=== PATIENT | male | born 1950 | race Caucasian/White ===

== ENCOUNTER → 2018-05-03 08:08 | Day surgery (SDC) | payer MEDICARE, BC ==
[~2018-05-03 08:08] MED LIST: Acetaminophen TAB* 325 MG PO PRN; Diazepam TAB(*) 5 MG ONE; Heparin 2 UNITS/ML IVPREMIX* 2,000 ML IV ONE; Heparin(*) 1000 UNIT/ML 10 ML VIAL CATH LAB IV ONE; Iohexol 350 (CONTRAST) 200 ML MDV IV ONE; Lidocaine 1% INJ* 10 MG/ML 30 ML SDV ONE; Midazolam* 1 MG/ML 10 ML VIAL (10 MG) ONE; NS 0.9% 1000 ML* 1,000 ML IV SCH; VERAPAMIL 2.5 MG/ML 2 ML VIAL ** 5 mg/2 ml ONE; fentaNYL* 50 MCG/ML 2 ML VIAL (100 MCG VIAL) ONE; nitroGLYCERIN DRIP* 25,000 MCG/250 ML BTL ONE
[2018-05-03 08:47] LABS: ABS Basophils 0 10^3/ul (0-0.2); ABS Eosinophils 0.1 10^3/ul (0-0.6); ABS Lymphocytes 2.5 10^3/ul (1.0-4.8); ABS Monocytes 0.9 10^3/ul (0-0.8); ABS Neutrophils 3.9 10^3/ul (1.5-7.7); ABS Nucleated RBC 0 10^3/ul; Eosinophil % 1.6 % (0-6); Hematocrit 45 % (42-52); Hemoglobin 15.9 g/dl (14.0-18.0); Lymphocyte % 33.7 % (25-47); Mean Corpuscular HGB Conc 35 g/dl (31-36); Mean Corpuscular Hemoglobin 32 pg (27-31); Mean Corpuscular Volume 92 fL (80-94); Mean Platelet Volume 7.5 um3 (7.4-10.4); Nucleated Red Blood Cells % 0.2; Platelet Count 229 10^3/ul (150-450); Red Blood Count 4.91 10^6/ul (4.00-5.40); Red Cell Distribution Width 13 % (10.5-15); White Blood Count 7.5 10^3/ul (3.5-10.8)
[2018-05-03 09:03] LABS: EGFR Non-African American 90.9 (>60); INR 0.9 (0.77-1.02)
[2018-05-03 12:36] VITALS: BP 144/89
--- NOTE | 2018-05-04 10:04 | CATH ---
CC: Noel Franco MD; Navjot Klein MD, Cardiothoracic Surgery, [place], [place].* CARDIAC CATHETERIZATION: DATE OF PROCEDURE: 05/03/18 - [facility] CATH PROCEDURE: Cardiac catheterization including coronary angiography and left heart catheterization. INDICATION: Severe mitral regurgitation. The patient is a 67-year-old gentleman, with a history of mitral regurgitation and mitral valve prolapse. His most recent transesophageal echocardiogram showed severe mitral regurgitation with prolapse of his posterior leaflet. Cardiac catheterization was recommended prior to mitral valve repair surgery. DESCRIPTION OF PROCEDURE: The patient was brought to the procedure room in a fasting state. Informed consent had been obtained prior to the procedure. All labs were reviewed. The patient was placed supine on the procedure table. His right radial wrist area was prepped and draped in usual fashion, 1% lidocaine was used for local anesthesia. The radial artery was entered by a Seldinger technique and a guidewire was placed. Over the guidewire, a 6-Honduran hydrophilic sheath was placed. The patient underwent coronary angiography using a 6-Honduran TIG catheter and a 6-Honduran JL4 catheter. At the end of the procedure, all sheaths and catheters were removed. The patient tolerated the procedure well with no complications. A total of 45 cc of Omnipaque dye was used and a total of 4.3 minutes of fluoro time was used. FINDINGS: HEMODYNAMICS: Central aortic blood pressure 111/71 with a mean of 91. Left ventricular pressure 110/6 with an end diastolic pressure of 13. CORONARY ARTERIES: 1. Left main artery: The left main was normal in size that bifurcated into the LAD and circumflex. There was no evidence of stenosis. 2. Left anterior descending artery: The LAD was normal in size. It gave off 2 diagonal vessels. There was no evidence of stenosis. 3. Left circumflex artery: The left circumflex artery was normal in size. It gave off one large obtuse marginal branch. There was no evidence of stenosis. 4. Right coronary artery: It was a large dominant vessel. It gave off a PDA. There was a proximal eccentric 20% stenosis to the right coronary artery. The remainder of the vessel without disease. IMPRESSION: 1. No significant coronary artery disease. 2. 20% stenosis to the proximal right coronary artery. 3. Successful right radial artery catheterization. RECOMMENDATION: The patient will be evaluated for mitral valve repair surgery. [id number] #: [id number] MTDD
== END | disposition home or self-care (01) ==
LOC: CHICATH 08:08
PROVIDERS: ATTEND Specialist
DX: I34.1 Nonrheumatic mitral (valve) prolapse (principal); R06.02 Shortness of breath; I25.10 Atherosclerotic heart disease of native coronary artery without angina pectoris; R06.09 Other forms of dyspnea; I10 Essential (primary) hypertension; I27.20 Pulmonary hypertension, unspecified
CPT/HCPCS: 36415; 80048; 85025; 85610; 85730; 93458; 99156; A9270-GY; C1887; J1644; J2250; J3010